=== PATIENT | female | born 1990 ===

== ENCOUNTER 2016-10-30 09:35 | Emergency (ER) | payer OTHER ==
[2016-10-30 09:38] VITALS: RESP 18
[2016-10-30 10:19] LABS: BASO % 0.6 % (0.0-2.0); EOS % 0.6 % (0.0-4.0); LYMPH # 1.4 K/uL (1.0-4.3); LYMPH % 18.1 % (20.0-40.0); MEAN CELL VOLUME 91.1 fL (81.0-99.0); MEAN CORPUSCULAR HEMOGLOBIN 30.6 pg (27.0-31.0); MEAN CORPUSCULAR HGB CONC 33.6 g/dL (33.0-37.0); MEAN PLATELET VOLUME 11.5 fL (7.2-11.7); MONO # 0.4 K/uL (0.0-0.8); MONO % 5.5 % (0.0-10.0); NEUT # 5.7 K/uL (1.8-7.0); NEUT % 75.2 % (50.0-75.0); RBC 4.25 Mil/uL (3.80-5.20); RED CELL DISTRIBUTION WIDTH 12.6 % (11.5-14.5); WHITE BLOOD COUNT 7.6 K/uL (4.8-10.8)
[2016-10-30 10:21] LABS: SQUAMOUS EPITHIAL 20 /hpf (0-5); URINE BACTERIA OCC (<OCC); URINE BILIRUBIN NEGATIVE (NEGATIVE); URINE BLOOD NEGATIVE (NEGATIVE); URINE CLARITY Hazy (Clear); URINE COLOR Yellow (YELLOW); URINE GLUCOSE (UA) NORMAL (Normal); URINE LEUKOCYTE ESTERASE 3+ Leu/uL (Negative); URINE NITRATE NEGATIVE (NEGATIVE); URINE PROTEIN NEGATIVE (NEGATIVE); URINE UROBILINOGEN NORMAL mg/dL (0.2-1.0)
--- NOTE | 2016-10-30 10:25 | C.PDOC ---
History Of Present Illness 26 year old female with a history of anemia presents to the ED with complaints of abdominal pain associated with nausea, and vomiting for six days. She reports pain exacerbated by food. Patient states she "feels inflammed and gassy ". She tried taking Zantac once without relief. LMP was 10/01/2016. She denies any diarrhea, fever, or other complaints at this time. Time Seen by Provider: 10/30/16 09:44 Chief Complaint (Nursing): Abdominal Pain History Per: Patient History/Exam Limitations: no limitations Onset/Duration Of Symptoms: Days (6 days) Current Symptoms Are (Timing): Still Present Pain Scale Rating Of: 9 Location Of Pain/Discomfort: Epigastric Quality Of Discomfort: "Pain" Associated Symptoms: Nausea, Vomiting. denies: Fever, Chills, Diarrhea, Back Pain, Urinary Symptoms Recent travel outside of the [place]: No Abnormal Vaginal Bleeding: No Past Medical History Reviewed: Historical Data, Nursing Documentation, Vital Signs Vital Signs: Last Vital Signs Temp 98.9 F 10/30/16 10:51 Pulse 62 10/30/16 10:51 Resp 18 10/30/16 10:51 BP 94/58 L 10/30/16 10:51 Pulse Ox 99 10/30/16 14:27 - Medical History PMH: No Chronic Diseases Surgical History: No Surg Hx Family History: States: Unknown Family Hx - Social History Hx Alcohol Use: No Hx Substance Use: No - Immunization History Hx Tetanus Toxoid Vaccination: No Hx Influenza Vaccination: No Hx Pneumococcal Vaccination: No Review Of Systems Constitutional: Negative for: Fever, Chills Cardiovascular: Negative for: Chest Pain Respiratory: Negative for: Shortness of Breath Gastrointestinal: Positive for: Nausea, Vomiting, Abdominal Pain. Negative for : Diarrhea Genitourinary: Negative for: Dysuria, Hematuria, Vaginal Bleeding Musculoskeletal: Negative for: Back Pain Physical Exam - Physical Exam Appears: Non-toxic, No Acute Distress Skin: Warm, Dry Head: Atraumatic, Normacephalic Eye(s): bilateral: Normal Inspection, EOMI Nose: Normal Oral Mucosa: Moist Neck: Supple Chest: Symmetrical, No Deformity Cardiovascular: Rhythm Regular Respiratory: Normal Breath Sounds, No Rhonchi, No Wheezing Gastrointestinal/Abdominal: Soft, Tenderness (epigastric tenderness), No Distention, No Guarding, No Rebound Back: Normal Inspection Neurological/Psych: Oriented x3 ED Course And Treatment - Laboratory Results Result Diagrams: 10/30/16 10:16 10/30/16 10:16 Lab Interpretation: No Acute Changes O2 Sat by Pulse Oximetry: 99 (room air ) Pulse Ox Interpretation: Normal Progress Note: CBC, CMP, Lipase, and U Preg were ordered. Patient was given Pepcid and Zofran. Reassessment Condition: Improved (On re-evaluation patient resting in no distress. Abdominal pain has improved. abdomen soft and nontender. patient stable for discharge.) Disposition Counseled Patient/Family Regarding: Diagnosis, Need For Followup, Rx Given - Disposition Referrals: Rachael Wetzel MD [Staff Provider] - Disposition: HOME/ ROUTINE Disposition Time: 10:50 Condition: STABLE Additional Instructions: Tus laboratorios paco normales Jazlyn medicamentos todos los landa y probar los cambios dietticos para ayudar con el dolor abdominal Evite la cafena y los alimentos picantes Por favor, siga en la clnica para ms atencin o si el dolor contina viendo el mdico GI Prescriptions: Omeprazole 20 mg PO DAILY #30 capsule.dr Instructions: Gastritis (DC), Diet for Ulcers and Gastritis (ED) Forms: [employer] (Turkmen), Work Excuse Print Language: EMIRATI - POA Present On Arrival: None - Clinical Impression Clinical Impression: Epigastric abdominal pain, Gastritis - Scribe Statement The provider has reviewed the documentation as recorded by the Scribe Li Hernández All medical record entries made by the Scribe were at my direction and personally dictated by me. I have reviewed the chart and agree that the record accurately reflects my personal performance of the history, physical exam, medical decision making, and the department course for this patient. I have also personally directed, reviewed, and agree with the discharge instructions and disposition.
[2016-10-30 10:35] LABS: ALB/GLOB RATIO 1.2 (1.0-2.1); ALT/SGPT 29 U/L (9-52); AST/SGOT 39 U/L (14-36); BLOOD UREA NITROGEN 9 mg/dL (7-17); GFR AFRICAN-AMERICAN > 60; GFR NON-AFRICAN AMERICAN > 60; LIPASE 22 U/L (23-300)
[2016-10-30 10:52] VITALS: BP 94/58; PULSE 62; TEMP 98.9; O2SAT 99
== END 2016-10-30 11:10 | disposition home or self-care (01) ==
LOC: C.ER 09:35
DX: K29.70 Gastritis, unspecified, without bleeding (principal); R10.13 Epigastric pain
CPT/HCPCS: 80053; 81001; 83690; 85025; 96374; 96375; 99284; J2405

== ENCOUNTER 2016-11-13 08:23 | Day surgery (SDC) | payer OTHER ==
[2016-11-13 10:34] VITALS: BMI 21.2
[2016-11-13 10:53] VITALS: O2SAT 100
[2016-11-13] MEDS ORDERED: Lidocaine 2% Inj (20ml) ONE (12:57)
[2016-11-13] MEDS ORDERED: Propofol 10 mg/ml Inj (20 ML) ONE (13:02)
--- NOTE | 2016-11-13 13:02 | CP.SDSHP ---
Same Day Surgery H & P - History Proposed Procedure: EGD Pre-Op Diagnosis: SEE NOTES - Previous Medical/Surgical History Neuro: Other Misc: Other Pain: 4.Moderate Pain - Allergies Allergies: Allergies No Known Allergies Allergy (Verified 10/30/16 09:38) - Physical Exam General Appearance: N Vital Signs: Vital Signs 11/13/16 10:44 Temperature 98.6 F Pulse Rate 59 L Respiratory 19 Rate Blood Pressure 100/52 L O2 Sat by Pulse 100 Oximetry Mental Status: Alert & Oriented x3 Neuro: WNL Heart: WNL Lungs: WNL GI: Other - {Optional Preform as Required} Breast: WNL Abdomen: Other Rectal: Other Integument: WNL : WNL Ortho: WNL ENT: WNL - Impression Pt. Evaluated Today:Candidate for Anesthesia & Procedure: Yes - Date & Time Time: 13:02 Short Stay Discharge - Short Stay Discharge Admitting Diagnosis/Reason for Visit: FUNCTIONAL DYSPEPSIA Disposition: HOME/ ROUTINE
[2016-11-13] MEDS ORDERED: Lactated Ringer's 1,000 ML IV ONE (13:05)
[2016-11-13] MEDS ORDERED: Belladonna-Phenobarbital PO ONE (13:15)
[2016-11-13 14:10] VITALS: TEMP 98.4
[2016-11-13 14:34] VITALS: BP 100/56; PULSE 58; RESP 14
== END 2016-11-13 14:32 | disposition home or self-care (01) ==
LOC: C.ENDO 08:23
PROVIDERS: ATTEND Specialist
DX: K20.9 Esophagitis, unspecified (principal); K30 Functional dyspepsia; K29.70 Gastritis, unspecified, without bleeding
CPT/HCPCS: 43239; 84703; 88305; 88342; J2704; J7120

== ENCOUNTER 2017-07-03 17:17 | Emergency (ER) | payer OTHER ==
[2017-07-03 17:17] VITALS: BMI 21.2
[2017-07-03 17:28] VITALS: TEMP 98.4
--- NOTE | 2017-07-03 17:56 | C.PDOC ---
History Of Present Illness 27 y/o female presents to ED with complaints of abdominal pain with associated nausea for 2 days. Patient is unsure if she is , states she has not taken test at home and denies fever, chills, diarrhea, back pain, dysuria or any other complaints at this time. LMP 06/23/17 as per patient. Time Seen by Provider: 07/03/17 17:46 Chief Complaint (Nursing): Dizziness/Lightheaded History Per: Patient History/Exam Limitations: no limitations Onset/Duration Of Symptoms: Days Current Symptoms Are (Timing): Still Present Location Of Pain/Discomfort: Diffuse Associated Symptoms: Nausea Past Medical History Reviewed: Historical Data, Nursing Documentation, Vital Signs Vital Signs: Last Vital Signs Temp 98.4 F 07/03/17 17:26 Pulse 79 07/03/17 17:26 Resp 20 07/03/17 17:26 BP 121/67 07/03/17 17:26 Pulse Ox 100 07/03/17 17:59 - Medical History PMH: No Chronic Diseases Surgical History: No Surg Hx Family History: States: No Known Family Hx - Social History Hx Alcohol Use: No Hx Substance Use: No - Immunization History Hx Tetanus Toxoid Vaccination: No Hx Influenza Vaccination: No Hx Pneumococcal Vaccination: No Review Of Systems Constitutional: Negative for: Fever, Chills Gastrointestinal: Positive for: Nausea, Abdominal Pain. Negative for: Vomiting , Diarrhea Genitourinary: Negative for: Dysuria Musculoskeletal: Negative for: Back Pain Skin: Negative for: Rash Physical Exam - Physical Exam Appears: Non-toxic, No Acute Distress Skin: Warm, Dry, No Rash Head: Atraumatic, Normacephalic Oral Mucosa: Moist Neck: Normal ROM, Supple Cardiovascular: Rhythm Regular Respiratory: Normal Breath Sounds, No Rales, No Rhonchi, No Wheezing Gastrointestinal/Abdominal: Soft, No Tenderness, No Guarding, No Rebound Back: No CVA Tenderness Extremity: Normal ROM, Capillary Refill (<2 seconds) Neurological/Psych: Oriented x3, Normal Speech ED Course And Treatment O2 Sat by Pulse Oximetry: 100 (RA) Pulse Ox Interpretation: Normal Disposition Counseled Patient/Family Regarding: Studies Performed, Diagnosis, Need For Followup, Rx Given - Disposition Referrals: [facility] [Outside] [facility] [place] [facility] [Outside] Disposition: HOME/ ROUTINE Disposition Time: 18:52 Condition: IMPROVED Prescriptions: Ondansetron [Zofran Odt] 4 mg PO TID PRN #9 odt PRN Reason: Nausea/Vomiting Instructions: Nausea and Vomiting of (DC) Forms: [employer] (Sudanese) Print Language: MALTESE - Clinical Impression Clinical Impression: Nausea/vomiting in - Scribe Statement The provider has reviewed the documentation as recorded by the Karyibnacho Bragg All medical record entries made by the Karyibnacho were at my direction and personally dictated by me. I have reviewed the chart and agree that the record accurately reflects my personal performance of the history, physical exam, medical decision making, and the department course for this patient. I have also personally directed, reviewed, and agree with the discharge instructions and disposition.
[2017-07-03 19:01] VITALS: BP 123/68; PULSE 78; RESP 18; O2SAT 99
== END 2017-07-03 19:01 | disposition home or self-care (01) ==
LOC: C.ER 17:17
DX: O21.9 Vomiting of pregnancy, unspecified (principal); Z3A.00 Weeks of gestation of pregnancy not specified

== ENCOUNTER 2017-11-12 18:18 | Inpatient (IN) | payer OTHER ==
[~2017-11-12 18:18] MED LIST: ceFAZolin 2 GM in Sodium Chloride 0.9% 100 ML IVPB STA
[2017-11-12 18:44] VITALS: BMI 25.8
[2017-11-12] MEDS ORDERED: Lactated Ringer's 500 ML IV ONE (19:44)
[2017-11-12 20:27] LABS: SQUAMOUS EPITHIAL 6 /hpf (0-5); URINE BACTERIA FEW (<OCC); URINE BILIRUBIN NEGATIVE (NEGATIVE); URINE BLOOD NEGATIVE (NEGATIVE); URINE CLARITY Hazy (Clear); URINE COLOR Yellow (YELLOW); URINE GLUCOSE (UA) NORMAL (Normal); URINE LEUKOCYTE ESTERASE 2+ Leu/uL (Negative); URINE PROTEIN NEGATIVE (NEGATIVE); URINE UROBILINOGEN NORMAL mg/dL (0.2-1.0)
[2017-11-12] MEDS ORDERED: Lactated Ringer's 500 ML IV SCH (22:15)
[2017-11-12] MEDS ORDERED: ceFAZolin 2 MG in Sodium Chloride 0.9% 100 ML IVPB SCH (22:45)
[2017-11-12] MEDS ORDERED: ceFAZolin 2 GM in Sodium Chloride 0.9% 100 ML IVPB STA (22:45)
[2017-11-12] MEDS ORDERED: Betamethasone Soluspan 30 mg/5mL Inj Susp IM ONE (23:00)
[2017-11-12] MEDS ORDERED: Magnesium Sulfate 20 gm 20 GM/500 ML BAG IV SCH (23:50)
[2017-11-13] MEDS ORDERED: ceFAZolin 2 GM in Sodium Chloride 0.9% 100 ML IVPB SCH (04:15)
--- NOTE | 2017-11-13 07:28 | OBADHP ---
Datetime: 11/13/2017 07:20 Admit Comment, IP Provider: This is a Twin gestation at 23.6 wks with c/o lower abdominal press ure and groin pain mostly at work. No other complaints today. On exam: ABD: Soft, NT VE: Closed Thick and high TOCO: Irregualr contractions FH: By Doppler and US - Positive x 2 , Mother witnessed the heart movements. Plan: IV hydration Urine for UA- Treated for UTI Case was discussed with Dr. Roberts [facility] who recommened Magnesium sulfate and Betamethazone. Cerv ical length in am at ATU Pelvic Type - PN: Adequate Extremities - PN: Normal Abdomen - PN: Normal Back - PN: Normal Breast - PN: Normal Lungs - PN: Normal Heart - PN: Normal Thyroid - PN: Normal Neurologic - PN: Normal HEENT - PN: Normal General - PN: Normal FHR - Baseline A Provider: 120/130 Contraction Comments Provider: Irregular Vital Signs Provider: Reviewed IP Chief Complaint: Uterine contractions Dilatation, Provider: 0 Effacement, Provider: 50 Station, Provider: -3 Genitourinary Exam: Normal DTRs - PN: Normal EGA AdmitDate IP: 23.6 IP Adm Impression: , intrauterine IP Admit Plan: Initiate labor protocol
[2017-11-13 08:58] LABS: BASO % 0.2 % (0.0-2.0); HEMOGLOBIN 11.3 g/dL (11.0-16.0); LYMPH % 10.3 % (20.0-40.0); MEAN CORPUSCULAR HGB CONC 34.9 g/dL (33.0-37.0); MEAN PLATELET VOLUME 10.7 fL (7.2-11.7); MONO # 0.2 K/uL (0.0-0.8); MONO % 1.9 % (0.0-10.0); NEUT # 8.1 K/uL (1.8-7.0); NEUT % 87.6 % (50.0-75.0); RBC 3.42 Mil/uL (3.80-5.20); RED CELL DISTRIBUTION WIDTH 13.4 % (11.5-14.5); WHITE BLOOD COUNT 9.2 K/uL (4.8-10.8)
[2017-11-13 09:03] LABS: MEAN CELL VOLUME 94.5 fL (81.0-99.0)
[2017-11-13 09:14] LABS: ALB/GLOB RATIO 1.2 (1.0-2.1); ALBUMIN 3.6 g/dL (3.5-5.0); ALT/SGPT 27 U/L (9-52); AST/SGOT 37 U/L (14-36); BLOOD UREA NITROGEN 4 mg/dL (7-17); CALCIUM 7.3 mg/dl (8.6-10.4); GFR AFRICAN-AMERICAN > 60; GFR NON-AFRICAN AMERICAN > 60
[2017-11-13 14:00] VITALS: BP 98/52; PULSE 86; RESP 18; O2SAT 98
== END 2017-11-13 09:30 | disposition home or self-care (01) | DRG 379 ==
LOC: C.EROB 18:18 → C.4D 11-13 01:25
PROVIDERS: ADMIT Obstetrics & Gynecology; ATTEND Obstetrics & Gynecology
DX: O60.02 Preterm labor without delivery, second trimester (principal); O30.002 Twin pregnancy, unspecified number of placenta and unspecified number of amniotic sacs, second trimester; Z3A.23 23 weeks gestation of pregnancy

== ENCOUNTER 2017-11-13 22:15 | Emergency (ER) | payer OTHER ==
[2017-11-12 18:44] VITALS: BMI 25.8
[2017-11-13] MEDS ORDERED: Betamethasone Soluspan 30 mg/5mL Inj Susp IM ONE (22:44)
--- NOTE | 2017-11-14 00:34 | OBDCSUM ---
Datetime: 11/13/2017 23:10 Discharged to, Provider: Home Follow up at, Provider: Clinic Disch Instr Activity: Normal activity Disch Instr Diet: Regular Discharge Time: 11/13/2017 23:10 Follow up in weeks, Provider: Saturday 11/18 Disch Referrals: None Disch Activity Restrictions: No exercising; No lifting; Minimize walking; Minimize stair-climbing; N o sexual activity Discharge Comment, Provider: cont pnv po hy f/u climnicon saturday Discharge Diagnosis Prov Other: 24we beta,ethasone
--- NOTE | 2017-11-14 00:34 | OBHP ---
Datetime: 11/14/2017 00:29 IP Adm Impression: , intrauterine IP Chief Complaint Other: beamethasobe Admit Comment, IP Provider: at 24weks twins for betamethasone, no ctxs, vb , lof+fm.pt was admi tted and discharged today obhx primi pmh de md pnv al nkda psh de a/p at 34we tins for betrano sex cont pnv po hy f/u climnicon saturday Pelvic Type - PN: Adequate Extremities - PN: Normal Abdomen - PN: Normal Back - PN: Normal Breast - PN: Normal Lungs - PN: Normal Heart - PN: Normal Thyroid - PN: Normal Neurologic - PN: Normal HEENT - PN: Normal General - PN: Normal FHR - Baseline A Provider: 130 Contraction Comments Provider: none Vital Signs Provider: Reviewed; Within Normal Limits NICHD Variability Prov Fetus A: Moderate 6-25bpm Genitourinary Exam: Normal DTRs - PN: Normal Datetime: 11/13/2017 07:20 IP Admit Plan: Initiate labor protocol EGA AdmitDate IP: 23.6 IP Chief Complaint: Uterine contractions Dilatation, Provider: 0 Effacement, Provider: 50 Station, Provider: -3
[2017-11-14 03:27] VITALS: BP 104/52; PULSE 82; RESP 18; TEMP 98.9
== END 2017-11-13 23:10 | disposition home or self-care (01) ==
LOC: C.EROB 22:15
DX: Z23 Encounter for immunization (principal); Z3A.24 24 weeks gestation of pregnancy
CPT/HCPCS: 99283; J0702